=== PATIENT | female | born 1990 ===

== ENCOUNTER 2023-05-24 17:34 | Emergency (ER) | payer MEDICAID, OTHER ==
[~2023-05-24] VITALS: Ht 170.2 cm; Wt 70.0 kg
[2023-05-25 01:15] VITALS: BP 101/64; PULSE 94; RESP 14; TEMP 97.6; O2SAT 96
[2023-05-25] MEDS ORDERED: HYDROcodone-ACET 5/325MG TAB PO ONE (01:15)
[2023-05-25] MEDS ORDERED: HYDR-4902 PO (02:40)
[2023-05-25] MEDS ORDERED: CEFU500T43 PO (02:40)
== END 2023-05-25 03:19 | disposition home or self-care (01) ==
LOC: EDBD 17:34 → ER 17:34
DX: S00.81XA Abrasion of other part of head, initial encounter (principal); X95.8XXA Assault by other firearm discharge, initial encounter; Y93.89 Activity, other specified; Y92.89 Other specified places as the place of occurrence of the external cause; Y99.8 Other external cause status
CPT/HCPCS: 70450; 70486; 73120